=== PATIENT | female | born 1965 | race Caucasian/White ===

== ENCOUNTER 2020-11-24 12:03 | Emergency (ER) | payer MEDICARE ==
[~2020-11-24] VITALS: Ht 160 cm; Wt 85.3 kg
[~2020-11-24 12:03] MED LIST: ATEN25 PO; Ativan0.5 MG PO; DIPH50 PO; Effexor Xr37.5 MG PO; LISI5 PO; Macrobid 100 M100 MG PO; OMEP20ER PO; Omeprazole20 M1 PO; Protonix40 MG PO; RANI150 PO; Zofran Odt4 MG PO
[2020-11-24] MEDS ORDERED: METO25ER PO (12:25)
[2020-11-24] MEDS ORDERED: FLONASE ALLERG9.9 ML (12:25)
[2020-11-24 12:57] LABS: BASOPHILS ABSOLUTE AUTO 0.06 K/mm3 (0.00-0.23); BASOPHILS PERCENT AUTO 1 % (0-2); EOSINOPHILS PERCENT AUTO 1 % (0-6); Hematocrit 45.7 % (33.0-51.0); Hemoglobin 15.7 g/dL (11.5-16.0); IMMATURE GRAN ABSOLUTE AUTO 0.05 K/mm3 (0.00-0.10); IMMATURE GRAN PERCENT AUTO 0 % (0-1); LYMPHOCYTES ABSOLUTE AUTO 2.63 K/mm3 (0.84-5.20); LYMPHOCYTES PERCENT AUTO 22 % (21-46); MONOCYTES ABSOLUTE AUTO 0.76 K/mm3 (0.16-1.47); MONOCYTES PERCENT AUTO 6 % (4-13); Mean Corpuscular HGB Conc 34.4 g/dL (31.5-36.5); Mean Corpuscular Volume 93 fL (80-100); Mean Platelet Volume 9.5 fL (9.1-12.4); NEUTROPHILS ABSOLUTE AUTO 8.25 K/mm3 (1.96-9.15); NEUTROPHILS PERCENT AUTO 70 % (41-73); Platelet Count 333 K/mm3 (150-400); RDW Coefficient Variation 12.4 % (11.7-14.2); RDW Standard Deviation 42.5 fL (35.1-46.3); Red Blood Cell Count 4.91 M/mm3 (3.80-5.20); White Blood Cell Count 11.85 K/mm3 (4.00-11.30)
[2020-11-24 13:17] LABS: Source, Urine Clean Catch
[2020-11-24 13:19] LABS: Appearance, Urine Clear (Clear); Bilirubin, Urine Neg (Neg); Blood, Urine 1+ (Neg); Color, Urine Yellow (P-Yellow); Glucose Qualitative, Urine Neg (Neg); Ketones, Urine Neg (Neg); Leukocyte Esterase, Urine 1+ (Neg); Nitrite, Urine Neg (Neg); Protein, Urine Neg (Neg); Urobilinogen, Urine NORM (Normal)
[2020-11-24 13:44] LABS: Bacteria Few /hpf; Red Blood Cells, Urine 0-2 /hpf (0-2); Squamous Epithelial Cells Few /hpf (Few); White Blood Cells, Urine 0-2 /hpf (0-5)
[2020-11-24 13:58] LABS: Alanine Aminotransfer (ALT/SGP 32 U/L (12-78); Albumin/Globulin Ratio 1.1 (0.8-1.8); Alk Phos 101 U/L (50-136); Anion Gap 8 mmol/L (6-16); Aspartate Aminotrans (AST/SGOT 14 U/L (12-37); Bilirubin, Total 0.4 mg/dL (0.1-1.0); Blood Urea Nitrogen 10 mg/dL (8-24); Bun/Creatinine Ratio 15.7 (12.0-20.0); CO2, Blood 22 mmol/L (21-32); Calcium, Blood 8.9 mg/dL (8.5-10.1); Chloride, Blood 109 mmol/L (98-108); Creatinine, Blood 0.64 mg/dL (0.40-1.00); Globulin, Blood 3.6 g/dL (2.2-4.0); Glomerular Filtration Rate >60 (60-); Glucose, Blood 113 mg/dL (70-99); Sodium, Blood 139 mmol/L (136-145); Total Protein, Blood 7.6 g/dL (6.4-8.2)
[2020-11-24] MEDS ORDERED: CIME400 PO (14:23)
[2020-11-24] MEDS ORDERED: DOC250 PO (14:25)
== END 2020-11-24 15:29 | disposition home or self-care (01) ==
LOC: ER 12:03
PROVIDERS: Emergency Medicine
DX: K21.9 Gastro-esophageal reflux disease without esophagitis (principal); K27.9 Peptic ulcer, site unspecified, unspecified as acute or chronic, without hemorrhage or perforation; Z79.899 Other long term (current) drug therapy
CPT/HCPCS: 36415; 76705; 80053; 81001; 83690; 84484; 85025; 87086; 93005; 93010; 96374; 96375; 99284-25; A9270; C9113; J2405; J3010; J7030

== ENCOUNTER → 2021-06-07 | Outpatient (CLI) | payer MEDICARE ==
[~2021-06-07] MED LIST changes: +CIME400 PO; +DOC250 PO; +FLONASE ALLERG9.9 ML; +METO25ER PO
[2021-06-10 13:13] LABS: CHLAMYDIA TRACHOMATIS, NAA Negative (Negative); HPV 16 Negative (Negative); HPV 18 Negative (Negative); HPV OTHER HR TYPES Negative (Negative)
== END ==
LOC: LAB 09:00 → LAB SHORT 09:00
PROVIDERS: Nurse Practitioner Family
DX: Z01.419 Encounter for gynecological examination (general) (routine) without abnormal findings (principal)
CPT/HCPCS: 87491; 87591; 87624; G0123

== ENCOUNTER → 2021-06-11 | Outpatient (CLI) | payer MEDICARE | LOC: LAB 09:48 → LAB SHORT 09:48 → LAB FUT 06-10 18:10 | DX: R30.9 Painful micturition, unspecified (principal); Z88.5 Allergy status to narcotic agent | CPT/HCPCS: 87077; 87086; 87186 ==

== ENCOUNTER → 2021-06-21 | Outpatient (CLI) | payer MEDICARE ==
[2021-06-21 09:01] LABS: Source, Urine Clean Catch
[2021-06-21 12:59] LABS: Appearance, Urine Clear (Clear); Bilirubin, Urine Neg (Neg); Blood, Urine Neg (Neg); Color, Urine Yellow (P-Yellow); Glucose Qualitative, Urine Neg (Neg); Ketones, Urine 2+ (Neg); Leukocyte Esterase, Urine 1+ (Neg); Nitrite, Urine Neg (Neg); Protein, Urine Neg (Neg); Urobilinogen, Urine NORM (Normal)
[2021-06-21 13:18] LABS: Bacteria Not Seen /hpf; Red Blood Cells, Urine Not Seen /hpf (0-2); Renal Epithelial Few /hpf (0-Rare); Squamous Epithelial Cells Few /hpf (Few); White Blood Cells, Urine 0-2 /hpf (0-5)
== END | disposition home or self-care (01) ==
LOC: LAB SHORT 08:58 → LAB 08:58
PROVIDERS: Nurse Practitioner Family
DX: R10.2 Pelvic and perineal pain (principal); R39.198 Other difficulties with micturition
CPT/HCPCS: 81001; 87086

== ENCOUNTER → 2021-09-18 | Outpatient (CLI) | payer MEDICARE | END | disposition home or self-care (01) | LOC: LAB SHORT 11:38 → LAB 11:38 | DX: K29.00 Acute gastritis without bleeding (principal); R13.19 Other dysphagia | CPT/HCPCS: 87338 ==

== ENCOUNTER → 2022-10-15 | Outpatient (CLI) | payer MEDICARE ==
[~2022-10-15] MED LIST changes: +ONDA4ODT MM; +PANTOPRAZOLE SO40 M2 PO; +PROMETHAZINE12.5 M1 PO
[2022-10-17 10:21] LABS: Stool Occult Bld Immuno 1 Negative (NEGATIVE)
== END ==
LOC: LAB SHORT 07:55
PROVIDERS: Nurse Practitioner Family
DX: Z12.11 Encounter for screening for malignant neoplasm of colon (principal)
CPT/HCPCS: G0328

== ENCOUNTER 2024-01-16 06:43 | Emergency (ER) | payer OTHER ==
[~2024-01-16] VITALS: Ht 165.1 cm; Wt 65.8 kg
[2024-01-16] MEDS ORDERED: DiphenhydrAMINE HCl 50 MG Cap PO ONE (07:00)
[2024-01-16] MEDS ORDERED: Adipex-P37.5 M1 PO (07:11)
[2024-01-16] MEDS ORDERED: ATORVASTATIN CA20 MG PO (07:12)
[2024-01-16] MEDS ORDERED: FAMO20 PO (07:12)
[2024-01-16] MEDS ORDERED: PROP60 PO (07:12)
[2024-01-16 07:52] VITALS: BP 145/90
== END 2024-01-16 07:54 | disposition home or self-care (01) ==
LOC: ER 06:43
DX: L27.1 Localized skin eruption due to drugs and medicaments taken internally (principal); T50.5X5A Adverse effect of appetite depressants, initial encounter; K21.9 Gastro-esophageal reflux disease without esophagitis
CPT/HCPCS: 99283; A9270

== ENCOUNTER → 2025-06-20 | Outpatient (CLI) | payer OTHER ==
[~2025-06-20] MED LIST changes: +ATORVASTATIN CA20 MG PO; +Adipex-P37.5 M1 PO; +FAMO20 PO; +PROP60 PO
== END ==
LOC: LAB 12:00 → LAB SHORT 12:00
DX: N39.0 Urinary tract infection, site not specified (principal)
CPT/HCPCS: 87077; 87086; 87186

== ENCOUNTER → 2025-06-26 | Outpatient (CLI) | payer OTHER | LOC: LAB 16:29 → LAB SHORT 16:29 | DX: N39.0 Urinary tract infection, site not specified (principal) | CPT/HCPCS: 87086 ==